=== PATIENT | female | born 1995 | race Hispanic/Latino ===

== ENCOUNTER 2017-05-04 21:18 | Emergency (ER) | payer MEDICAID ==
[2016-09-20 16:57] VITALS: BMI 31.4
[2017-05-04 21:56] LABS: RBC URINE 7 /hpf (0-3); URINE BACTERIA RARE (<OCC); URINE BILIRUBIN NEGATIVE (NEGATIVE); URINE BLOOD NEGATIVE (NEGATIVE); URINE COLOR Amber (YELLOW); URINE GLUCOSE (UA) NORMAL (Normal); URINE KETONE 1+ mg/dL (NEGATIVE); URINE LEUKOCYTE ESTERASE 3+ Leu/uL (Negative); URINE PROTEIN 1+ mg/dL (NEGATIVE); URINE UROBILINOGEN NORMAL mg/dL (0.2-1.0); WBC URINE 119 /hpf (0-5)
--- NOTE | 2017-05-04 22:01 | OBHP ---
Datetime: 05/04/2017 21:50 IP Adm Impression: , intrauterine ; No Active Labor IP Chief Complaint Other: Back Pain IP Admit Plan: Observation/Evaluation; Discharge home Admit Comment, IP Provider: 21yo with IUP at 36wks reporting with backpains starting from this afternoon. Denies any VB or LOF. Feels good movements. Reports urinary frequency Milam- occasional, FHR- category 1, Cx: 0/0/-3 Assessment: IUP at 36wks. Urinary frequency NST - reactive. Plan: UA Fluids D/c Home if UA - LE-3+, WBC- 119 Labor instructions given. Plan: Keflex 500mg Q 8hrs x 5 days. Pelvic Type - PN: Adequate Extremities - PN: Normal Abdomen - PN: Normal Back - PN: Normal Breast - PN: Normal Lungs - PN: Normal Heart - PN: Normal Thyroid - PN: Normal Neurologic - PN: Normal HEENT - PN: Normal General - PN: Normal Presentation-Admit: Vertex FHR - Baseline A Provider: 120 Membranes, Provider: Intact Contraction Comments Provider: Occasional Comments, ACOG Physical Exam: Abd: Soft, NT, BS- present UT- firm Gestation - Est Wks by US: 36.0 EGA AdmitDate IP: 36.1 Vital Signs Provider: Reviewed IP Chief Complaint: Maternal discomfort; Other NICHD Variability Prov Fetus A: Moderate 6-25bpm NICHD Accel Fetus A IP Provider: 15X15 FHR Category Provider Fetus A: Category I NICHD Decel Fetus A IP Provider: None Dilatation, Provider: 0 Effacement, Provider: 0 Station, Provider: -3 Genitourinary Exam: Normal DTRs - PN: Normal
[2017-05-05 02:13] VITALS: BP 115/74; PULSE 94; TEMP 98.2
== END 2017-05-04 22:10 | disposition home or self-care (01) ==
LOC: C.EROB 21:18
DX: O26.893 Other specified pregnancy related conditions, third trimester (principal); M54.9 Dorsalgia, unspecified; Z3A.36 36 weeks gestation of pregnancy

== ENCOUNTER 2017-05-30 04:50 | Inpatient (IN) | payer MEDICAID ==
[2017-05-30 05:14] VITALS: BMI 37.3
--- NOTE | 2017-05-30 05:14 | OBADHP ---
Datetime: 05/30/2017 05:09 Admit Comment, IP Provider: at 39=weeks came wuth c/o ctxs started in , 04/25,no vb, lof,+fm obhx 3 x pmh den med pn all nkda psh den soch de ve / a/p at 39=weks in active labor admit to l_d npo/ivf labs pain manag anticipate Pelvic Type - PN: Adequate Extremities - PN: Normal Abdomen - PN: Normal Back - PN: Normal Breast - PN: Normal Lungs - PN: Normal Heart - PN: Normal Thyroid - PN: Normal Neurologic - PN: Normal HEENT - PN: Normal General - PN: Normal FHR - Baseline A Provider: 130 Contraction Comments Provider: q1-4 Comments, ACOG Physical Exam: gravidnon tender IP Hx Assessment: The History has been Reviewed and is Current Vital Signs Provider: Reviewed; Within Normal Limits IP Chief Complaint: Uterine contractions NICHD Variability Prov Fetus A: Moderate 6-25bpm NICHD Accel Fetus A IP Provider: 15X15 FHR Category Provider Fetus A: Category I Dilatation, Provider: 6 Effacement, Provider: 90 Station, Provider: 0 Genitourinary Exam: Normal DTRs - PN: Normal EGA AdmitDate IP: 39.6 IP Adm Impression: Term, intrauterine ; Active labor IP Admit Plan: Admit to unit; Initiate labor protocol Datetime: 05/04/2017 21:50 IP Chief Complaint Other: Back Pain Presentation-Admit: Vertex Membranes, Provider: Intact Gestation - Est Wks by US: 36.0 NICHD Decel Fetus A IP Provider: None
[2017-05-30] MEDS ORDERED: Lactated Ringer's 1,000 ML IV SCH (05:15)
[2017-05-30] MEDS ORDERED: Lidocaine 2% Inj (20ml) ONE (05:36)
[2017-05-30] MEDS ORDERED: Oxycodone/Acetaminophen 5/325 mg Tab PO PRN (05:39)
[2017-05-30] MEDS ORDERED: Benzocaine/Menthol 20%-0.5% Topical Spray (60 ml) TOP PRN (05:39)
[2017-05-30] MEDS ORDERED: Oxytocin 30 UNIT 30 UNITS/500 ML BAG IV SCH (05:45)
--- NOTE | 2017-05-30 06:06 | OBDS ---
DELIVERY PERSONNEL Delivery Doctor: Ilene Strickland MD Diabetes Nurse: Tamiko Bruno RN MATERNAL INFORMATION Delivery Anesthesia: Local Medications in Delivery: PITOCIN Placenta Cultured: No Maternal Complications: None Provider Comments: NSD TO A LIVE BABY BOY FROM A CARMELO POSITION, WITH AN INTACT PERINEUM. PLACENTA EXP ELLED SPONTANEOUSLY, COMPLETE. EBL 150 CC. LABOR SUMMARY EDC: 05/31/2017 00:00 No. Babies in Womb: 1 Attempted: No Labor Anesthesia: None LABOR INFORMATION Reason for Induction: Not Applicable Onset of Labor: 05/30/2017 04:00 Complete Dilatation: 05/30/2017 05:28 Oxytocin: N/A Group B Beta Strep: Negative Steroids Given: None Reason Steroids Not Administered: Not Applicable MEMBRANES Membranes Rupture Method: Spontaneous Rupture of Membranes: 05/30/2017 05:27 Length of Rupture (hrs): 0.05 Amniotic Fluid Color: Clear Amniotic Fluid Amount: Small Amniotic Fluid Odor: Normal STAGES OF LABOR Stage 1 hrs: 1 Stage 1 min: 28 Stage 2 hrs: 0 Stage 2 min: 2 Stage 3 hrs: 0 Stage 3 min: 1 Total Time in Labor hrs: 1 Total Time in Labor min: 31 VAGINAL DELIVERY Episiotomy: None Laceration Extension: First Degree Laceration Type: Periurethral Laceration Repair: Yes Laceration Repair Note: NORMAL SPONTANEOUS VAGINAL DELIVERY TO A LIVE BABY BOY 9/9 WITH AN I NTACT PERINEUM . PLACENTA EXPELLED SPONTANEOUSLY , COMPLETE AND INTACT PERINEUM.. UTERUS FIRM AND SARANYA D. EBL 150 CC. Initial Vag Sponge Count: 10 Final Vag Sponge Count: 10 Initial Vag Sharps Count: 0 Final Vag Sharps Count: 1 Sponge Count Correct: Yes; Vaginal Sweep Performed BABY A INFORMATION Delivery Date/Time: 05/30/2017 05:30 Method of Delivery: Vaginal Born in Route : No : N/A Forceps: N/A Vacuum Extraction: N/A Shoulder Dystocia : No SHOULDER DYSTOCIA BABY A Delivery Date/Time: 05/30/2017 05:30 PRESENTATION/POSITION BABY A Presentation: Cephalic Cephalic Presentation: Vertex Vertex Position: Left Occipital Anterior Breech Presentation: N/A PLACENTA INFORMATION BABY A Placenta Delivery Time : 05/30/2017 05:31 Placenta Method of Delivery: Spontaneous Placenta Status: Delivered SCORES BABY A Heart Rate 1 min: >100 bpm Resp Effort 1 min: Good Cry Reflex Irritability 1 min: Cough or Sneeze or Pulls Away Muscle Tone 1 min: Active Motion Color 1 min: Body [place], Extremities Blue SCORE 1 MIN: 9 Heart Rate 5 min: >100 bpm Resp Effort 5 min: Good Cry Reflex Irritability 5 min: Cough or Sneeze or Pulls Away Muscle Tone 5 min: Active Motion Color 5 min: Body [place], Extremities Blue SCORE 5 MIN: 9 INFORMATION BABY A Gestational Age at Delivery: 39.6 Gestational Status: Term Infant Outcome : Liveborn Condition : Stable Sex: Male IDENTIFICATION/MEDS BABY A ID Band Number: [id number] ID Band Location: Left Leg; Left Arm Sensor Applied: Yes Sensor Number: [id number] Sensor Location : Cord Clamp Vitamin K Given : Aquamephyton 1 mg IM; Left Thigh Erythromycin Given: Given Both Eyes WEIGHT/LENGTH BABY A Infant Birthweight (gms): 3565 Infant Weight (lb): 7 Weight (oz): 14 Infant Length Inches: 20.00 Infant Length cms: 50.8 CORD INFORMATION BABY A No. Cord Vessels: 3 Nuchal Cord : N/A Cord Blood Taken: Yes Infant Suction: Mouth; Nose ASSESSMENT BABY A Complications: None Physical Findings at Delivery: Within Normal Limits Infant Respirations: Appears Normal Care By: MALOU COOK Transferred To: Remains with Mother
[2017-05-30 06:22] LABS: BASO % 0.3 % (0.0-2.0); EOS # 0.5 K/uL (0.0-0.7); EOS % 3.7 % (0.0-4.0); HEMATOCRIT 35.1 % (34.0-47.0); LYMPH # 4.3 K/uL (1.0-4.3); LYMPH % 32.3 % (20.0-40.0); MEAN CELL VOLUME 79.6 fL (81.0-99.0); MEAN CORPUSCULAR HEMOGLOBIN 26.1 pg (27.0-31.0); MEAN CORPUSCULAR HGB CONC 32.8 g/dL (33.0-37.0); MEAN PLATELET VOLUME 10.5 fL (7.2-11.7); MONO # 1.2 K/uL (0.0-0.8); MONO % 9.1 % (0.0-10.0); NRBC % 0.1 % (0.0-2.0); WHITE BLOOD COUNT 13.5 K/uL (4.8-10.8)
[2017-05-30 06:24] LABS: RBC URINE 1 /hpf (0-3); URINE BACTERIA RARE (<OCC); URINE BILIRUBIN NEGATIVE (NEGATIVE); URINE BLOOD NEGATIVE (NEGATIVE); URINE COLOR Straw (YELLOW); URINE GLUCOSE (UA) NORMAL (Normal); URINE KETONE NEGATIVE (NEGATIVE); URINE LEUKOCYTE ESTERASE 3+ Leu/uL (Negative); URINE PROTEIN NEGATIVE (NEGATIVE); URINE UROBILINOGEN NORMAL mg/dL (0.2-1.0); WBC URINE 33 /hpf (0-5)
[2017-05-30 06:35] LABS: ALKALINE PHOSPHATASE 187 U/L (38-126); ALT/SGPT 19 U/L (9-52); AST/SGOT 13 U/L (14-36); BILIRUBIN,TOTAL 0.3 mg/dL (0.2-1.3); BLOOD UREA NITROGEN 9 mg/dL (7-17); CALCIUM 9.4 mg/dl (8.6-10.4); CARBON DIOXIDE 20 mmol/L (22-30); CHLORIDE 104 mmol/L (98-107); GFR AFRICAN-AMERICAN > 60; GLUCOSE,RANDOM 65 mg/dL (65-105); POTASSIUM 3.7 mmol/L (3.6-5.2); SODIUM 138 mmol/L (132-148); TOTAL PROTEIN 6.9 g/dL (6.3-8.3)
[2017-05-31 07:48] LABS: HEMATOCRIT 29.8 % (34.0-47.0); MEAN CELL VOLUME 80.3 fL (81.0-99.0); MEAN CORPUSCULAR HEMOGLOBIN 26.5 pg (27.0-31.0); MEAN PLATELET VOLUME 10.2 fL (7.2-11.7); RED CELL DISTRIBUTION WIDTH 15.8 % (11.5-14.5); WHITE BLOOD COUNT 11.6 K/uL (4.8-10.8)
--- NOTE | 2017-05-31 17:30 | OBPPN ---
Datetime: 05/31/2017 17:17 PP Pain Prov: Within normal limits PP Nausea Prov: Denies PP Flatus Prov: Yes PP BM Prov: Yes PP Breasts Prov: Normal PP Heart Prov: Normal PP Lungs Prov: Normal PP Abdomen/Uterus Prov: Normal PP Lochia Prov: Normal PP Vulva/Perineum Prov: Normal PP CVA Tenderness Prov: Normal PP Extremities Prov: Normal PP Impression Prov: Normal progression PP Plan Prov: Continue present management PP Progress Note Prov: 1st day afebrile, ambulatory, breasts are soft, uterus firm and h rafal, extremities neg for edema and tenderness. lochia minimal .FOR DISCHARGED HOME IN AM. TO THE [facility] IN 4 WEEKS FOR CHECKUP. CONTINUE VITAMINS AND IRON AT HOME. IP PP Procedures: None Vital Signs Provider PP: Reviewed
[2017-06-01 09:10] VITALS: BP 118/76; PULSE 73; RESP 18; TEMP 97.4; O2SAT 98
== END 2017-06-01 11:30 | disposition home or self-care (01) | DRG 373 ==
LOC: C.EROB 04:50 → C.4D 05:12 → C.4M 08:00
PROVIDERS: ADMIT Obstetrics & Gynecology; ATTEND Obstetrics & Gynecology
PROC: 10E0XZZ Delivery of Products of Conception, External Approach (ICD-10-PCS; principal; 2017-05-30)
PROC: 0HQ9XZZ Repair Perineum Skin, External Approach (ICD-10-PCS; 2017-05-30)
DX: O70.0 First degree perineal laceration during delivery (principal); Z3A.39 39 weeks gestation of pregnancy; Z37.0 Single live birth

== ENCOUNTER 2017-08-01 18:05 | Emergency (ER) | payer MEDICAID ==
[2017-08-01 18:05] VITALS: BMI 37.3
[2017-08-01 18:11] VITALS: PULSE 95; RESP 20; TEMP 97.9; O2SAT 99
[2017-08-01 18:13] VITALS: BP 102/68
[2017-08-01] MEDS ORDERED: guaiFENesin DM 100 mg-10 mg/5 ml UD PO STA (18:27)
--- NOTE | 2017-08-01 18:47 | C.PDOC ---
History Of Present Illness 21 year old female presents to ED for evaluation of cough and congestion for the last 2 days. Notes that her son was recently diagnosed with RSV. Denies fever, or any other complaints at this time. Time Seen by Provider: 08/01/17 18:24 Chief Complaint (Nursing): Cough, Cold, Congestion History Per: Patient History/Exam Limitations: no limitations Onset/Duration Of Symptoms: Days Current Symptoms Are (Timing): Still Present Location Of Pain: None Sick Contacts (Context): Family Member(s) Associated Symptoms: Cough, Nasal Congestion. denies: Sore Throat, Sputum, Neck Pain, Nausea Ear Symptoms: Bilateral: None Severity: None Pain Scale Rating Of: 0 Recent travel outside of the [place]: No Additional History Per: Patient Past Medical History Reviewed: Historical Data, Nursing Documentation, Vital Signs Vital Signs: Last Vital Signs Temp 97.9 F 08/01/17 18:09 Pulse 95 H 08/01/17 18:09 Resp 20 08/01/17 18:09 BP 102/68 08/01/17 18:12 Pulse Ox 99 08/01/17 18:56 - Medical History PMH: Bronchitis, Gastritis, Gall Bladder Disease Denies: Depression, Diabetes, HTN, Chronic Kidney Disease Surgical History: Cholecystectomy - [facility] Procedures DELIVERY OF PRODUCTS OF CONCEPTION, EXTERNAL APPROACH (05/30/17) MANUAL ASSIST DELIV NEC (10/03/13) REPAIR ABDOMINAL WALL, PERCUTANEOUS ENDOSCOPIC APPROACH (09/12/16) REPAIR OB LACERATION NEC (10/03/13) REPAIR PERINEUM SKIN, EXTERNAL APPROACH (05/30/17) RESECTION OF GALLBLADDER, PERCUTANEOUS ENDOSCOPIC APPROACH (09/12/16) Family History: States: Unknown Family Hx - Social History Hx Tobacco Use: Yes (1 cig/day) Hx Alcohol Use: No Hx Substance Use: No - Immunization History Hx Tetanus Toxoid Vaccination: No Hx Influenza Vaccination: No Hx Pneumococcal Vaccination: No Review Of Systems Except As Marked, All Systems Reviewed And Found Negative. Constitutional: Negative for: Fever, Chills ENT: Positive for: Nose Congestion. Negative for: Ear Pain, Nose Discharge, Throat Pain Respiratory: Positive for: Cough. Negative for: Shortness of Breath, Sputum Gastrointestinal: Negative for: Nausea, Vomiting, Diarrhea Neurological: Negative for: Headache Physical Exam - Physical Exam Appears: Non-toxic, No Acute Distress Skin: Normal Color, Warm, Dry Head: Atraumatic, Normacephalic Eye(s): bilateral: Normal Inspection Ear(s): Bilateral: Normal Nose: Normal Oral Mucosa: Moist Throat: Normal, No Erythema, No Exudate Neck: Normal ROM, Supple Cardiovascular: Rhythm Regular, No Murmur Respiratory: Normal Breath Sounds, No Rales, No Rhonchi, No Wheezing, Other ( active coughing) Extremity: Normal ROM Neurological/Psych: Oriented x3, Normal Speech ED Course And Treatment O2 Sat by Pulse Oximetry: 99 (RA) Pulse Ox Interpretation: Normal Medical Decision Making Medical Decision Making: Plan: * Robitussin * Prednisone * Reassess and dispo Patient remained afebrile alert and oriented with stable vital signs during ER evaluation. On re-examination, patient is resting comfortably in no acute distress. Patient reports improvement of symptoms. Patient feels comfortable going home and will be discharged. Patient given follow up instructions. Instructed to return to ER if symptoms worsen or new symptoms arise. Disposition Counseled Patient/Family Regarding: Diagnosis, Need For Followup, Rx Given - Disposition Referrals: Irvin Lu MD [Staff Provider] - Disposition: HOME/ ROUTINE Disposition Time: 18:45 Condition: STABLE Additional Instructions: Follow up with your primary medical doctor or clinic in 2-5 days for further evaluation. Take medications as prescribed. Return to the emergency department at any time if symptoms persist or worsen. Prescriptions: Benzonatate [Tessalon Perles] 100 mg PO TID #30 sgl Prednisone 50 mg PO DAILY #4 tablet Instructions: Upper Respiratory Infection (ED) Forms: [facility] (Tunisian) - POA Present On Arrival: None - Clinical Impression Clinical Impression: Bronchospasm, Upper respiratory infection - PA / RN CLINICAL / Resident Statement MD/DO has reviewed & agrees with the documentation as recorded. - Scribe Statement The provider has reviewed the documentation as recorded by the Jordanaibe Junito Hauser All medical record entries made by the Scribe were at my direction and personally dictated by me. I have reviewed the chart and agree that the record accurately reflects my personal performance of the history, physical exam, medical decision making, and the department course for this patient. I have also personally directed, reviewed, and agree with the discharge instructions and disposition.
[2017-08-01] MEDS ORDERED: guaiFENesin 200 mg/10 ml Syrup UD ONE (18:53)
== END 2017-08-01 18:56 | disposition home or self-care (01) ==
LOC: C.ER 18:05
DX: J98.01 Acute bronchospasm (principal); J06.9 Acute upper respiratory infection, unspecified; Z87.891 Personal history of nicotine dependence

== ENCOUNTER 2018-02-11 21:33 | Emergency (ER) | payer MEDICAID ==
[2018-02-11 21:34] VITALS: BMI 37.3
--- NOTE | 2018-02-11 23:34 | C.PDOC ---
History Of Present Illness 22 year old female presents to the ER with a complaint of sore throat and pain with swallowing. Patient states she has a Hx of recurrent strep throat and notes the pain feels the same. Denies fever, vomiting, or headache. Time Seen by Provider: 02/11/18 22:08 Chief Complaint (Nursing): ENT Problem History Per: Patient History/Exam Limitations: None Onset/Duration Of Symptoms: Days Current Symptoms Are (Timing): Still Present Quality (Mouth/Throat): Tenderness Symptoms Have Been: Continuous Anticoagulant/Antiplatlet Use?: No Past Medical History Reviewed: Historical Data, Nursing Documentation, Vital Signs Vital Signs: Last Vital Signs Temp 98.4 F 02/11/18 23:39 Pulse 75 02/11/18 23:39 Resp 18 02/11/18 23:39 BP 124/71 02/11/18 23:39 Pulse Ox 98 02/12/18 01:13 - Medical History PMH: Bronchitis, Gastritis, Gall Bladder Disease Surgical History: Cholecystectomy - [facility] Procedures DELIVERY OF PRODUCTS OF CONCEPTION, EXTERNAL APPROACH (05/30/17) MANUAL ASSIST DELIV NEC (10/03/13) REPAIR ABDOMINAL WALL, PERCUTANEOUS ENDOSCOPIC APPROACH (09/12/16) REPAIR OB LACERATION NEC (10/03/13) REPAIR PERINEUM SKIN, EXTERNAL APPROACH (05/30/17) RESECTION OF GALLBLADDER, PERCUTANEOUS ENDOSCOPIC APPROACH (09/12/16) Family History: States: Unknown Family Hx - Social History Hx Tobacco Use: Yes (1 cig/day) Hx Alcohol Use: No Hx Substance Use: No - Immunization History Hx Tetanus Toxoid Vaccination: No Hx Influenza Vaccination: No Hx Pneumococcal Vaccination: No Review Of Systems Constitutional: Negative for: Fever ENT: Positive for: Throat Pain Gastrointestinal: Negative for: Vomiting Neurological: Negative for: Headache Physical Exam - Physical Exam Appears: Non-toxic Skin: Normal Color, Warm, Dry Head: Atraumatic, Normacephalic Eye(s): bilateral: Normal Inspection, PERRL Ear(s): Bilateral: Normal Nose: Normal Oral Mucosa: Moist Throat: Other (Enlarged tonsils with exudates on right tonsil) Neck: Normal, Supple Lymphatic: Adenopathy (Submandibular b/l) Chest: Symmetrical, No Tenderness Cardiovascular: Rhythm Regular Respiratory: Normal Breath Sounds, No Rales, No Rhonchi, No Wheezing Neurological/Psych: Oriented x3, Normal Speech ED Course And Treatment O2 Sat by Pulse Oximetry: 98 (Room air) Pulse Ox Interpretation: Normal Progress Note: Motrin administered with relief. Patient is resting comfortably in the ER in no acute distress, vitals are stable, will discharge home with Rx for antibiotics and advise to follow up with PMD or return if symptoms worsen. Disposition Counseled Patient/Family Regarding: Diagnosis, Need For Followup - Disposition Referrals: Irvin Lu MD [Staff Provider] - Disposition: HOME/ ROUTINE Disposition Time: 23:32 Condition: STABLE Additional Instructions: Increase fluids Warm salt gargle Take medications as directed Return to ER if worse Prescriptions: Ibuprofen [Motrin] 600 mg PO Q6H #24 tab Penicillin VK [Penicillin VK Tab] 2 tab PO BID #28 tab Instructions: Sore Throat, Adult (DC) Forms: [facility] (Greek) - Clinical Impression Clinical Impression: Pharyngitis - PA / RESEARCH ADMINISTRATOR / Resident Statement MD/DO has reviewed & agrees with the documentation as recorded. - Scribe Statement The provider has reviewed the documentation as recorded by the Scribe Joe Sterling All medical record entries made by the Jordanaibandreas were at my direction and personally dictated by me. I have reviewed the chart and agree that the record accurately reflects my personal performance of the history, physical exam, medical decision making, and the department course for this patient. I have also personally directed, reviewed, and agree with the discharge instructions and disposition.
[2018-02-11 23:41] VITALS: BP 124/71; PULSE 75; RESP 18; TEMP 98.4
[2018-02-12 01:10] VITALS: O2SAT 98
== END 2018-02-11 23:46 | disposition home or self-care (01) ==
LOC: C.ER 21:33
DX: J02.9 Acute pharyngitis, unspecified (principal); Z87.891 Personal history of nicotine dependence